=== PATIENT | male | born 1955 | race Caucasian/White ===

== ENCOUNTER 2020-02-24 16:03 | Outpatient (REF) | payer OTHER, SELFPAY ==
--- NOTE | 2020-02-24 16:11 | XR_ITS ---
EXAMINATION: XR CHEST CLINICAL INFORMATION: R09.89 - Other specified symptoms and signs involving the ci COMPARISON: None TECHNIQUE: 2 views of the chest were obtained. FINDINGS: The heart is normal in size. The vascularity is normal. There is no airspace consolidation or definite groundglass opacity. The costophrenic sulci are clear. The hilar and mediastinal contours are normal. There are degenerative changes thoracic spine. Right shoulder replacement present. XR/XR chest 2V IMPRESSION: No acute intrathoracic disease.
== END 2020-02-24 16:04 | disposition home or self-care (01) ==
LOC: HO.HMGCX 16:03
PROVIDERS: PCP Nurse Practitioner Family; Visit Provider Nurse Practitioner Family
DX: R09.89 Other specified symptoms and signs involving the circulatory and respiratory systems (principal)
CPT/HCPCS: 71046

== ENCOUNTER 2020-04-04 07:50 | Outpatient (REF) | payer OTHER, SELFPAY ==
[2020-04-04 08:59] LABS: Anion Gap 13 (12-20); Blood Urea Nitrogen 21 mg/dL (9-16); Calcium 9.3 mg/dL (8.4-10.2); Carbon Dioxide 23 mmol/L (22-29); Chloride 109 mmol/L (96-108); Cholesterol 220 mg/dL; Estimated Glomerular Filt Rate > 60; Glucose Fasting 101 mg/dL (60-99); HDL Cholesterol 52 mg/dL; LDL Cholesterol Calculated 152 mg/dl; Potassium 4.2 mmol/l (3.3-5.1); Sodium 141 mmol/L (135-145); Triglycerides 84 mg/dL
[2020-04-04 09:20] LABS: Prostate Specific Antigen Scr 2.42 ng/mL (<0.05-4.0); TSH reflex Free T4 1.87 mIU/mL (0.32-4.0)
== END 2020-04-04 07:51 | disposition home or self-care (01) ==
LOC: HO.LAB 07:50
PROVIDERS: PCP Nurse Practitioner Family; Visit Provider Nurse Practitioner Family
DX: Z00.00 Encounter for general adult medical examination without abnormal findings (principal); Z12.5 Encounter for screening for malignant neoplasm of prostate
CPT/HCPCS: 80048; 80061; 84153; 84443

== ENCOUNTER → 2020-11-05 08:16 | Outpatient (REF) | payer OTHER, SELFPAY ==
--- NOTE | 2020-11-05 08:30 | CA_ITS ---
Transthoracic Echocardiogram Patient (Last, First, Middle): Darren Tinoco, Gender: Male Date of : 1955 Age: 65 Procedure Date: 11/05/2020 Procedure Type: Transthoracic Echocardiogram Location: OP Height: 177.8 cm Weight: 122.47 kg BSA: 2.37 m2 Heart Rate: bpm BP: 142 / 80 mmHg Silk Spooler: Mey MD: Femi Mckenzie MD Symptoms: PERSIS AFIB Study Quality: Good ECG Rhythm: Atrial Fibrillation Conclusions: - The left ventricular systolic function is normal. The visually estimated ejection fraction is between 60-65%. - Mildly increased right ventricular cavity size. - There is mild mitral valve regurgitation. Findings Left Ventricle Normal left ventricular cavity size. The left ventricular systolic function is normal. The visually estimated ejection fraction is between 60-65%. There is no evidence of regional wall motion abnormalities. Diastolic function is indeterminate on the basis of available data. Focal hypertrophy of the basal septum. Right Ventricle Mildly increased right ventricular cavity size. There is normal right ventricular systolic function. Atria The left atrium is mildly dilated. The right atrium is normal in size. Aortic Valve There is a normal trileaflet aortic valve. There is no aortic valve stenosis. There is no aortic valve regurgitation. Mitral Valve The mitral valve appears normal. There is mild mitral valve regurgitation. There is no mitral valve stenosis. Pulmonic Valve The pulmonic valve was not well visualized. There is trace pulmonic valve regurgitation. Tricuspid Valve Normal tricuspid valve structure. There is trace tricuspid valve regurgitation. The pulmonary artery systolic pressure is normal. Great Vessels The aortic annulus, sinuses of valsalva, asc aorta, and aortic arch are normal in size. Venous The inferior vena cava is normal in size and collapses greater than 50% with inspiration. Pericardium/Pleural There is no evidence of pericardial effusion. Prior Study Comparison No significant change compared to prior study dated: 08/13/2019. Measurements 2D Linear Measurements RVIDd: 3.92 RVIDd Index: 1.65 IVSd: 1.02 0.6-0.9/0.6-1.0 cm LVIDd: 5.48 3.9-5.3/4.2-5.9 cm LVIDd Index: 2.31 2.4-3.2/2.2-3.1 cm/m2 LVIDs: 4.07 2.0-3.6 cm LVPWd: 1.42 0.7-1.1 cm Ao Root: 3.90 2.1-3.5 cm LA Diam: 5.20 2.7-3.8/3.0-4.0 cm LAIDs Index: 2.19 1.5-2.3 cm/m2 LV Mass: 345.52 67-162/88-224 g LV Mass Index: 145.79 43-95/49-115 g/m2 LVOT Diam: 2.30 3.0+(-)1.3 cm 2D Systolic Function EF 4C: 57.30 >55% EF 2C: 58.30 >55% EF BiP: 58.00 >55% Mitral Valve MR Vol - PW Dopp: 26.88 MR VTI: 1.68 MR ERO: 16.00 MR Alias Benoit: 0.34 MR RAD: 0.60 Aortic Valve AoV Pk Benoit: 0.92 AoV Mn Benoit: 0.70 AoV VTI: 0.17 AoV Pk Grad: 3.00 Aov Mn Grad: 2.00 INNA Cont.VTI: 3.46 LVOT LVOT Pk Benoit: 0.72 LVOT Mn Benoit: 0.49 LVOT VTI: 0.14 LVOT Pk Grad: 2.00 LVOT Mn Grad: 1.00 LVOT Diam: 2.30 LVOT Area: 4.15 Tricuspid Valve TR Pk Benoit: 1.93 TR Pk Grad: 15.00 RA Press: 3.00 RVSP: 18.00 Great Vessels Aorta Ao Root-2D: 3.90 2.0-3.7 cm Ao Asc: 3.50 2.1-3.4 cm Ao Arch: 2.70 Updated in Other Vendor System with Status of Final Femi Mckenzie MD electronically signed on 11/06/2020 2:23:54 PM with status of Final
--- NOTE | 2020-11-05 10:00 | ECG_ITS ---
Hook-up date: 2020-11-05 09:39:00 Duration: 28:17:00 Test Indications: AFIB Medications: [id number] QRS complexes 840 Ventricular ectopics which represent <1 % of total QRS comp. * Supraventricular ectopics which represent % of total QRS comp. * Paced QRS complexs which represent % of total QRS comp. VENTRICULAR ECTOPY 822 Isolated 0 Bigeminal Cycles 9 Couplets 0 Runs 0 Beats in Runs * Beats LONGEST at * BPM at :: -- * Beats FASTEST at * BPM at :: -- SUPRAVENTRICULAR ECTOPY * Isolated * Couplets * Runs * Beats in Runs * Beats LONGEST at * BPM at :: -- * Beats FASTEST at * BPM at :: -- HEART RATES 43 MIN at 08:12:50 2020-11-06 85 AVG 178 MAX at 19:56:52 2020-11-05 LONGEST RR 2.2160 secs at 05:07:55 2020-11-06 S-T LEVELS Channel 1 - 128 mm at 09:39:00 2020-11-05 - 128 mm at 09:39:00 2020-11-05 Channel 2 - 128 mm at 09:39:00 2020-11-05 - 128 mm at 09:39:00 2020-11-05 Channel 3 - 128 mm at 02:85:81 -- - 128 mm at 02:85:81 Underlying rhythm is atrial fibrillation; Average ventricular rate 85/min; range 43-178/min; About 30% of the time, rate >100/min; Rare PVCs; Patient did not report any symptoms in the diary ; Overall, reasonable rate control, but there is tendency for tachycardia. Referred By: Shahab Renee Overread By: SHAHAB RENEE
== END ==
LOC: HO.CARD 08:16
PROVIDERS: Visit Provider Internal Medicine
DX: I48.19 Other persistent atrial fibrillation (principal)
CPT/HCPCS: 93225; 93226; 93306

== ENCOUNTER → 2020-11-30 08:42 | Outpatient (BNVA) | payer OTHER, SELFPAY | PROVIDERS: PCP Nurse Practitioner Family; Referring Provider Nurse Practitioner Family; Visit Provider Internal Medicine | DX: I48.19 Other persistent atrial fibrillation (principal); I10 Essential (primary) hypertension | CPT/HCPCS: 93005 ==

== ENCOUNTER 2021-07-25 09:47 | Emergency (ER) | payer OTHER, SELFPAY ==
--- NOTE | 2021-07-25 09:43 | PC.NURSE ---
@ [phone] RESPIRATORY CALLED [id number] TO MAKE THEM AWARE OF THIS PT COMING IN.
--- NOTE | 2021-07-25 09:54 | ECG_ITS ---
Test Reason : CARDIAC ARREST Blood Pressure : / mmHG Vent. Rate : 071 BPM Atrial Rate : 000 BPM P-R Int : 000 ms QRS Dur : 102 ms QT Int : 440 ms P-R-T Axes : 000 -48 169 degrees QTc Int : 478 ms Atrial fibrillation with premature ventricular or aberrantly conducted complexes Septal infarct , age undetermined Marked ST abnormality, possible inferior subendocardial injury Marked ST abnormality, possible anterolateral subendocardial injury Abnormal ECG When compared with ECG of 25-JUL-2021 09:53, Possible rhythm change Vent. rate has increased BY [address] depression more prominent Referred By: Kady Man Electronically Signed By:SHAHAB RENEE
--- NOTE | 2021-07-25 10:38 | PC.NURSE ---
@ THIS TIME DR VARGAS STATES NO DRY CLEANING SUPERVISOR CALL NEEDED AND TIME OF IS 10:27 AM GIVEN FINANCE MANAGER WORKSHEET
--- NOTE | 2021-07-25 10:39 | ED_ITS ---
HPI - CPR General Chief Complaint: Cardiac Arrest/CPR Stated Complaint: CARDIAC ARREST Time Seen by Provider: 07/25/21 10:31 Source: family and EMS Mode of arrival: EMS Limitations: other History of Present Illness MD complaint: collapsed during activity (after eating) Onset (ago): hour(s) (9am today) Time: 09:00 Timing confirmed by: family member Place: home Bystander CPR performed: Yes AED applied by bystander/first assistant: Yes Shock advised: Yes Number of shocks delivered: 1 Initial findings in the field: unresponsive, no pulse and VTACH/VFIB (one) Associated injuries: No Associated symptoms: abdominal pain and other (nausea/vomiting/seizure like activity) Known history of: other (HTN, afib) Treatments prior to arrival: other airway device (OPA and [facility]), chest compressions, defibrillated shocks # (1) and epinephrine mgs # (4) Related Data Previous Rx's Medication Instructions Recorded diltiazem HCl 120 mg tablet 120 mg PO BID 90 Days #180 tab 02/09/21 ezetimibe 10 mg tablet 10 mg PO DAILY #90 tab 02/09/21 metoprolol tartrate 100 mg tablet 100 mg PO BID #180 tab 05/10/21 levothyroxine 125 mcg tablet 125 mcg PO DAILY #90 tab 05/12/21 Allergies Allergy/AdvReac Type Severity Reaction Status Date / Time statins Allergy Unknown Unknown Verified 11/30/20 08:52 Review of Systems Review of Systems: ROS unable to be obtained due to ongoing CPR [facility] Past Medical History Medical History (Updated 07/25/21 @ 10:54 by Kady Man DO) Essential hypertension Hypothyroid Persistent atrial fibrillation Surgical History No pertinent past surgical history Family History Family History Father HTN (hypertension) Mother No problems noted. Paternal Grandmother Stroke Maternal Aunt Stroke Brother No problems noted. Brother No problems noted. Brother No problems noted. Sister No problems noted. Son No problems noted. Daughter No problems noted. Social History Social History (Updated 11/30/20 @ 08:51 by OZIEL Mead) Alcohol intake: former Patient Tobacco Use Status: Never used Tobacco Advance Directives: No Physical Exam Vital Signs: Appearance: On going CPR, unresponsive Eyes: Pupils are blown ENT: Pharynx has OPA in with BVM by EMS in place no advanced or supraglottic airway in place Neck: shortened neck CVS: absent heart sounds on arrival, good pulse with compressions, feet and hands are blue and cold to the touch, dependent lividity noted on thighs Respiratory: No respiratory distress. Breath sounds normal. Abdomen: Soft and nontender. normal color, obese Skin: Skin cold and cyanotic in extremities, lips, ears Extremities: No lower extremity edema. IO in L shoulder Neuro: Fixed and blown pupils no response to any stimuli Course Course Course Narrative: 1 hour and 15 minutes into the cardiac arrest he has lost his pulses between EMS and hospital time at least 4 to 5 times without sustained pulses long enough for us to do a workup I notified his family and they all state after discussion that if he loses his pulses again that we will stop CPR as it will be futile time of 1027am - pupils are blown, asytole on the monitor, no heart sounds, cardiac standstill on ECHO, no motor responses MDM - Cardiac Arrest/CPR MDM Narrative Medical decision making narrative: 66 yo male with hx of HTN, afib had intercourse with his partner this AM, then was eating c/o abdominal pain and vomited then had seizure activity and LOC - EMS call at 9am. Came in with CPR ongoing 1 ROSC in field he arrives cyanotic and pulseless in the ED. Prolonged prehospital course of 50 minutes prior to arrival with cyanosis on arrival. Will continue CPR suspect ACS event given preceding symptoms Lab Data Labs: Lab Results 07/25/21 Range/Units 09:53 POC Glucose 116 H (60-115) mg/dL ECG Data Attestation: I personally reviewed and interpreted this ECG as follows: ECG interpretation date: 07/25/21 ECG interpretation time: 10:30 Interpretation: Rate: 30 Rhythm: bradycardia [place]: left wide qrs ST T wave : ST depression V3-V4, CHRISTOPHER aVr qTC: normal prior studies: changed The study has been interpreted contemporaneously by me. repeat EKG show similar pattern of ST depression in V3/4 and CHRISTOPHER in aVR, posterior ECG no CHRISTOPHER in V7-V9 Procedures Procedure Narrative Procedure Narrative: during intermittent times of CPR cardiac ECHO apical and substernal views showed poor cardiac activity vs cardiac standstill during episodes of organized activity his septum and apical area were hypokinetic 30+ of CPR with asystole PE rhythms 4+ epi, bicarb infused, levo drip, BS > 100, intubated, good compressions continued to lose pulses quickly within 1 to 2 minutes given prolonged downtime suspect efforts to be futile will discuss with family and their wishes FAST Exam FAST Exam 1: Fluid in Morison's pouch: No Fluid in Splenorenal Junction: No Fluid around bladder, Transverse view: No Fluid around bladder, Sagittal view: No Fluid in Pericardial Sac: No Gross Wall Motion Abnormality: Yes Study normal for this patient: No Images saved for further review: No Intubation Time out performed: Yes sedative: none Laryngoscope: other (glidescop) ET Tube Size: 7.5 ET Tube Uncuffed: Yes Tube Secured Depth (cm): 24 Tube Secured Location: teeth Tube Placement Confirmation: visualized tube passing through cords, equal breath sounds bilaterally, no breath sounds over epigastrium and confirmation by capn ometry Patient Tolerated Procedure: well and no complications Intubation Complications: none Critical Care Time Critical Care Time Critical Care Time: Yes Total Critical Care Time: 35 Attestation: constant vigilance at bedside, CPR, discussion with family I attest to this time spent taking care of the patient Discharge Plan Discharge Clinical Impression: Cardiac arrest Patient Disposition: Date/Time: 07/25/21 10:27
[2021-07-25 10:41] LABS: Glucose, Whole Blood 116 mg/dL (60-115)
--- NOTE | 2021-07-25 10:54 | ECG_ITS ---
Test Reason : CARDIAC ARREST Blood Pressure : / mmHG Vent. Rate : 030 BPM Atrial Rate : 000 BPM P-R Int : 000 ms QRS Dur : 110 ms QT Int : 520 ms P-R-T Axes : 000 046 165 degrees QTc Int : 367 ms Junctional bradycardia Intra-ventricular conduction delay Marked ST abnormality, possible anterolateral subendocardial injury Abnormal ECG No previous ECGs available Referred By: Kady Man Electronically Signed By:SHAHAB RENEE
--- NOTE | 2021-07-25 10:55 | ECG_ITS ---
Test Reason : CARDIC ARRST Blood Pressure : / mmHG Vent. Rate : 044 BPM Atrial Rate : 000 BPM P-R Int : 000 ms QRS Dur : 080 ms QT Int : 446 ms P-R-T Axes : 000 024 178 degrees QTc Int : 381 ms Atrial fibrillation with slow ventricular response Low voltage QRS Septal infarct (cited on or before 25-JUL-2021) Marked ST abnormality, possible inferolateral subendocardial injury Abnormal ECG When compared with ECG of 25-JUL-2021 10:03, Vent. rate has decreased BY [address] depression less prominent Referred By: Kady Man Electronically Signed By:SHAHAB RENEE
--- NOTE | 2021-07-25 11:20 | PC.NURSE ---
this junior technical writer notified [facility] spoke with Bonnie. Organ donation declined.
== END 2021-07-25 14:05 | disposition expired ==
PROVIDERS: Emergency Provider Emergency Medicine; PCP Nurse Practitioner Family
DX: I46.9 Cardiac arrest, cause unspecified (principal); I48.91 Unspecified atrial fibrillation; I10 Essential (primary) hypertension; Z79.899 Other long term (current) drug therapy
CPT/HCPCS: 31500; 82947; 87040; 93005; 99282; 99291; J0171; J0461